=== PATIENT | male | born 1945 | race Two or more races ===

== ENCOUNTER → 2016-10-09 | Outpatient (CLI) | payer OTHER, BC | LOC: BHCLAF 11:00 | PROVIDERS: ATTEND Internal Medicine Cardiovascular Disease | DX: M79.609 Pain in unspecified limb (principal); Z95.2 Presence of prosthetic heart valve; E78.00 Pure hypercholesterolemia, unspecified; I10 Essential (primary) hypertension; E11.9 Type 2 diabetes mellitus without complications; I35.9 Nonrheumatic aortic valve disorder, unspecified; I73.9 Peripheral vascular disease, unspecified | CPT/HCPCS: 93005-PO ==

== ENCOUNTER → 2016-11-01 | Outpatient (CLI) | payer OTHER, BC | LOC: BHFA 15:00 | PROVIDERS: ATTEND Internal Medicine Cardiovascular Disease | DX: M79.662 Pain in left lower leg (principal); M79.661 Pain in right lower leg; I10 Essential (primary) hypertension; E11.9 Type 2 diabetes mellitus without complications ==

== ENCOUNTER → 2016-11-08 | Outpatient (CLI) | payer OTHER, BC | LOC: BHCLAF 10:00 | PROVIDERS: ATTEND Internal Medicine | DX: I35.9 Nonrheumatic aortic valve disorder, unspecified (principal) | CPT/HCPCS: 93306-PO ==

== ENCOUNTER → 2016-12-05 | Outpatient (CLI) | payer OTHER, BC ==
[~2016-12-05] MED LIST: IOPAMIDOL (ISOVUE 370) 100 ML BTL IV ONE
== END ==
LOC: CIMAGING 10:08
PROVIDERS: ATTEND Internal Medicine Cardiovascular Disease
DX: I77.1 Stricture of artery (principal)
CPT/HCPCS: 75635; Q9967

== ENCOUNTER 2017-01-16 07:54 | Inpatient (IN) | payer OTHER, BC ==
[2017-01-16] MEDS ORDERED: ASPIRIN EC 325 MG TAB PO ONE (08:07)
[2017-01-16] MEDS ORDERED: DIAZEPAM 5 MG TAB PO ONE (08:07)
[2017-01-16] MEDS ORDERED: FAMOTIDINE 20 MG/NACL 50 ML IV ONE (08:07)
[2017-01-16] MEDS ORDERED: NS 1,000 ML IV ONE (08:07)
[2017-01-16] MEDS ORDERED: methylPREDNISolone SOD SUCC 125 MG/2 ML VIAL IVP ONE (08:07)
--- NOTE | 2017-01-16 08:22 | CPEKG ---
Heart Rate: 56 RR Interval: 1071 P-R Interval: 184 QRSD Interval: 94 QT Interval: 412 QTC Interval: 398 P [place]: -21 QRS [place]: 11 T Wave [place]: 48 EKG Severity - ABNORMAL ECG - EKG Impression: SINUS RHYTHM EKG Impression: CONSIDER ANTEROSEPTAL INFARCT Electronically Signed By: Devin Naik 16-Jan-2017 09:07:18
[2017-01-16] MEDS ORDERED: MIDAZOLAM 2 MG/2 ML VIAL ONE (08:28)
[2017-01-16] MEDS ORDERED: fentaNYL 100 MCG/2 ML INJ ONE (08:28)
[2017-01-16] MEDS ORDERED: IOPAMIDOL (ISOVUE-370) 150 ML BTL IV ONE (08:28)
[2017-01-16] MEDS ORDERED: LIDOCAINE 1% 300 MG/30 ML SDV ONE (08:28)
[2017-01-16] MEDS ORDERED: HEPARIN 10,000 UNIT/10 ML MDV ONE (08:29)
--- NOTE | 2017-01-16 08:33 | PDPROPOC ---
Sedation Plan of Care Sedation Plan of Care: vital signs stable, mental status noted, patient educated of risks, benefits, alternatives, patient can tolerate sedation ASA Classification: ASA 2 Planned drugs: fentanyl, midazolam Mallampati Score: Class 2 Mallampati Reference Image: Patient passed 3-3-2 rule?: Yes
--- NOTE | 2017-01-16 08:33 | PDHPUP ---
History & Physical Update H&P update statement: This history and physical update is based on an assessment of the patient which was completed after admission or registration (within 24 hours), but prior to the surgery/procedure. H&P update: H&P reviewed & patient examined, no change in patient's condition since H&P completed
[2017-01-16 09:01] LABS: ANION GAP 15 mEq/L (8-16); CALCIUM 9.8 mg/dL (8.5-10.4); CARBON DIOXIDE 20 mEq/l (22-31); CHLORIDE 105 mEq/L (97-110); CHOLESTEROL 182 mg/dL (140-220); CHOLESTEROL/HDL RATIO 5.69 RATIO (1.00-4.97); CREATININE 1.1 mg/dL (0.7-1.3); GLOMERULAR FILTRATION RATE > 60; GLUCOSE 182 mg/dL (70-100); HIGH DENSITY LIPOPROTEIN 32 mg/dL (40-65); LDL/HDL RATIO 3.44 RATIO (1.00-3.64); LOW DENSITY LIPOPROTEIN 110 mg/dL (80-100); MAGNESIUM 1.5 mg/dL (1.6-2.3); NON-HIGH DENSITY LIPOPROTEIN 150 mg/dL (90-129); POTASSIUM 5.5 mEq/L (3.5-5.2); SODIUM 140 mEq/L (134-144); SPECIMEN HEMOLYSIS 115; TRIGLYCERIDE 200 mg/dL (40-150); VERY LOW DENSITY LIPOPROTEINS 40 mg/dL (8-25)
[2017-01-16 09:02] LABS: % IMMATURE GRANULYOCYTES 0.5 % (0.0-1.1); ABSOLUTE IMMATURE GRANULOCYTES 0.04 10^3/uL (0.00-0.10); ADD DIFF? NO; ADD MORPH? NO; ADD SCAN? YES; ATYPICAL LYMPHOCYTE FLAG 0 (0-99); FRAGMENT RBC FLAG 0 (0-99); HEMATOCRIT 41.2 % (40.0-51.0); HEMOGLOBIN 13.4 g/dL (13.7-17.5); LEFT SHIFT FLG 0 (0-99); LIPEMIA HEMOLYSIS FLAG 80 (0-99); MEAN CELL HEMOGLOBIN 28.6 pg (27.9-34.1); MEAN CELL HEMOGLOBIN CONCENTR. 32.5 g/dL (32.4-36.7); MEAN PLATELET VOLUME 10.6 fL (8.7-11.7); PLATELET COUNT 215 10^3/uL (150-400); RED BLOOD CELL COUNT 4.68 10^6/uL (4.40-6.38); RED CELL DISTRIBUTION WIDTH 13.5 % (11.5-15.2)
[2017-01-16 09:03] LABS: PLATELET CLUMPS FLAG 300 (0-99)
[2017-01-16 09:07] LABS: INR 1.04 (0.83-1.16); PROTIME(PATIENT) 13.5 SEC (12.0-15.0)
[2017-01-16 09:22] LABS: SCAN NEGATIVE
[2017-01-16] MEDS ORDERED: IOPAMIDOL (ISOVUE-300) 150 ML BTL ONE ×2 (09:41→10:09)
[2017-01-16] MEDS ORDERED: LABETALOL HCL 5 MG/ML 20 ML MDV ONE (09:42)
[2017-01-16] MEDS ORDERED: CLOPIDOGREL BISULFATE 75 MG TAB ONE (11:31)
[2017-01-16] MEDS ORDERED: ATROPINE SULFATE 1 MG/10 ML SYR IVP PRN (12:21)
[2017-01-16] MEDS ORDERED: TEMAZEPAM 15 MG CAP PO PRN (12:21)
[2017-01-16] MEDS ORDERED: NITROGLYCERIN 0.4 MG BTL SL PRN (12:21)
[2017-01-16] MEDS ORDERED: LORazepam 2 MG/ML INJ IVP PRN (12:21)
[2017-01-16] MEDS ORDERED: ONDANSETRON 4 MG/2 ML VIAL IVP PRN (12:21)
[2017-01-16] MEDS ORDERED: CLINDAMYCIN 150 MG CAP PO PRN (12:25)
--- NOTE | 2017-01-16 12:43 | CPEKG ---
Heart Rate: 54 RR Interval: 1111 P-R Interval: 164 QRSD Interval: 86 QT Interval: 420 QTC Interval: 398 P [place]way: -18 QRS [place]: 15 T Wave [place]: 44 EKG Severity - ABNORMAL ECG - EKG Impression: SINUS RHYTHM EKG Impression: PROBABLE LEFT ATRIAL ABNORMALITY EKG Impression: CONSIDER ANTEROSEPTAL INFARCT Electronically Signed By: Devin Naik 16-Jan-2017 13:15:41
[2017-01-16] MEDS ORDERED: LISINOPRIL 20 MG TAB PO ONE ×2 (12:45→13:00)
[2017-01-16] MEDS ORDERED: HYDROCHLOROTHIAZIDE 25 MG TAB PO ONE (12:45)
--- NOTE | 2017-01-16 12:57 | CPIP ---
[f rep st] INVASIVE CARDIAC PROCEDURE DATE OF PROCEDURE: 01/16/2017 PROCEDURES PERFORMED: 1. Abdominal aortography. 2. Right lower extremity angiography via contralateral approach with catheter placed in the right ex ternal iliac artery. 3. Left lower extremity angiography via ipsilateral approach with catheter placed in the left common iliac artery. 4. Angioplasty of right common iliac artery. 5. Stenting of right common iliac artery with an 8.0 x 37 Express stent. INDICATION: Lifestyle limiting claudication. ACCESS: Patient was prepped and draped in sterile fashion. 1% lidocaine was used to anesthetize the left inguinal region. A 6-German introducer sheath was placed selectively into the left common femo ral artery via modified Seldinger technique. ABDOMINAL AORTOGRAPHY: A 6-German pigtail catheter was advanced in the distal abdominal aorta and po sition verified by angiography. Images were obtained via power injection through the [place] system. The abdominal aorta gave rise to a single left renal artery as well as a single right renal artery. It then continued distally and bifurcated into the left and right common iliac arteries. The left r enal artery was not well visualized. The right renal artery appeared free of any significant disease . Below the renal artery, the abdominal aorta was diffusely diseased with no significant stenosis. RIGHT LOWER EXTREMITY ANGIOGRAPHY: Via contralateral approach with catheter placed in the right exte rnal iliac artery. A 5-German Contra 2 catheter was advanced into the distal abdominal aorta and ref ormed into its usual position. The catheter was then used to selectively engage the right common francine ac artery. Images were obtained via hand injection. The right common iliac artery bifurcated into i nternal and external iliac arteries. The right common iliac artery was diffusely diseased. In the p roximal segment, there was a discrete 90% stenosis present. In the eec-ec-nfxqaz segment, there was a discrete 40% to 50% stenosis present. The right internal iliac artery had a 90% ostial stenosis pr esent with antegrade flow. The right external iliac artery was free of any significant disease. A s tiff angled Glidewire was then advanced through the Contra 2 catheter, and the Contra 2 catheter was exchanged for a straight flush catheter. The straight flush catheter was placed selectively into the right external iliac artery and images obtained. The right external iliac artery turned into the [facility] artery. The right common femoral artery then bifurcated into the superficial femo ral artery and profunda femoral artery. The right external iliac artery was free of any significant disease. The right common femoral artery was also free of any significant disease. The ostial porti on of the profunda femoral artery had a discrete 80% stenosis present. The right superficial femoral artery was diffusely diseased with multiple segments of 70% to 80% stenoses present. The right supe rficial femoral artery then turned into the popliteal artery. The popliteal artery was free of any s ignificant disease. Below the knee, there was a 2-vessel runoff with an occluded posterior tibial ar dana. LEFT LOWER EXTREMITY ANGIOGRAPHY: Via ipsilateral approach with catheter placed in the left common i liac artery. A straight flush catheter was placed in the left common iliac artery, and images were o btained via hand injection through the catheter. The left common iliac artery bifurcated into a left external iliac artery and left internal iliac artery. The left common iliac artery had an ostial 70 % stenosis present. The left internal iliac artery had an ostial 90% stenosis present. The left ext ernal iliac artery was diffusely diseased, approaching 70% in severity. The left external iliac elier ry then turned into the left common femoral artery. The left common femoral artery is free of any si gnificant disease. The left common femoral artery bifurcated into the superficial femoral artery and profunda femoral artery. The right superficial femoral artery was occluded in the mid segment; it r econstituted around Riley canal and then turned into the popliteal artery. The popliteal artery was free of any significant disease. Below the knee, there was 2-vessel runoff with an occluded posteri or tibial artery. PERCUTANEOUS INTERVENTION OF THE RIGHT COMMON ILIAC ARTERY: A 6-German introducer sheath was placed selectively into the right common femoral artery via modified Seldinger technique. A Magic torque wi re was placed in the distal abdominal aorta with position verified by angiography. A 6.0 x 40 Charge r balloon was then used to dilate the lesion. Followup angiography demonstrated significant residual stenosis. An 8.0 x 37 Express stent was then placed across the lesion and deployed. Followup angio graphy demonstrated incomplete stent expansion in the proximal portion of the vessel with good runoff . A 6.0 x 40 Office Secretary balloon was then used to post dilate the stent. Followup angiography demonstra robert no residual stenosis. COMPLICATIONS: None. CONCLUSIONS: 1. Status post stenting of right common iliac artery. 2. Consider staged intervention of the right superficial femoral artery via the left common femoral artery approach. 3. Consider staged intervention of the left superficial femoral artery, left common iliac artery, an d left external iliac artery via the right common femoral artery approach. /[id number]/MODL
[2017-01-16] MEDS ORDERED: LISINOPRIL/HCTZ 10/12.5 MG 1 EA TAB PO ONE (13:15)
[2017-01-16] MEDS: LABETALOL HCL 50 MG/10 ML SYR IVP PRN ×2 (14:43→15:03)
[2017-01-16] MEDS: HYDROCHLOROTHIAZIDE 25 MG TAB PO SCH (16:18)
[2017-01-16] MEDS: LISINOPRIL 20 MG TAB PO SCH (16:18)
[2017-01-16] MEDS: CARVEDILOL 6.25 MG TAB PO SCH (18:05)
[2017-01-16] MEDS: MONTELUKAST SODIUM 10 MG TAB PO SCH (18:05)
[2017-01-16] MEDS: OMEGA-3 FATTY ACIDS 1,000 MG CAP PO SCH (20:39)
[2017-01-16] MEDS: GLIMEPIRIDE 2 MG TAB PO SCH (20:40)
[2017-01-17 04:47] LABS: % IMMATURE GRANULYOCYTES 0.7 % (0.0-1.1); ABSOLUTE IMMATURE GRANULOCYTES 0.06 10^3/uL (0.00-0.10); ADD DIFF? NO; ADD MORPH? NO; ADD SCAN? NO; ATYPICAL LYMPHOCYTE FLAG 0 (0-99); FRAGMENT RBC FLAG 0 (0-99); LEFT SHIFT FLG 0 (0-99); LIPEMIA HEMOLYSIS FLAG 80 (0-99); MEAN CELL HEMOGLOBIN 28.7 pg (27.9-34.1); MEAN CELL HEMOGLOBIN CONCENTR. 32.4 g/dL (32.4-36.7); MEAN CELL VOLUME 88.5 fL (81.5-99.8); PLATELET CLUMPS FLAG 0 (0-99); PLATELET COUNT 191 10^3/uL (150-400); RED BLOOD CELL COUNT 4.18 10^6/uL (4.40-6.38); RED CELL DISTRIBUTION WIDTH 13.6 % (11.5-15.2)
[2017-01-17 05:04] LABS: ANION GAP 12 mEq/L (8-16); CALCIUM 9.2 mg/dL (8.5-10.4); CARBON DIOXIDE 24 mEq/l (22-31); CHLORIDE 103 mEq/L (97-110); CREATININE 1.5 mg/dL (0.7-1.3); GLOMERULAR FILTRATION RATE 46; GLUCOSE 132 mg/dL (70-100); POTASSIUM 4.3 mEq/L (3.5-5.2); SODIUM 139 mEq/L (134-144)
[2017-01-17] MEDS ORDERED: NON-FORMULARY NEW DRUG (Lisinopril/Hydrochlorothiazide [Prinzide 20-25 Mg Tablet] 1 EACH) PO SCH (09:00)
[2017-01-17] MEDS ORDERED: ATORVASTATIN CALCIUM 40 MG TAB PO SCH ×2 (09:00→11:20)
[2017-01-17] MEDS: HYDROCHLOROTHIAZIDE 25 MG TAB PO SCH (09:06)
[2017-01-17] MEDS: MULTIVITAMINS 1 EACH TAB PO SCH (09:08)
[2017-01-17] MEDS: CHOLECALCIFEROL VIT D3 2,000 UNITS TAB/CAP PO SCH (09:08)
[2017-01-17] MEDS: CLOPIDOGREL BISULFATE 75 MG TAB PO SCH (09:08)
[2017-01-17] MEDS: CARVEDILOL 6.25 MG TAB PO SCH ×2 (09:09→21:48)
[2017-01-17] MEDS: ASPIRIN EC 325 MG TAB PO SCH (09:09)
[2017-01-17] MEDS: LISINOPRIL 20 MG TAB PO SCH (09:09)
[2017-01-17] MEDS ORDERED: FLU VACC QS 2017-18 (3YR+)/PF 0.5 ML SYR (FLUARIX QUAD) IM ONE (09:12)
--- NOTE | 2017-01-17 11:27 | ASMTCMCOM ---
CM Note CM Note Notes: Chart reviewed, pt is a 71 man admitted w/ PVD and claudication. CM anticipating that pt discharges independent w/out any needs when medically stable. CM available for changes. Date Signed: 01/17/2017 11:27 AM Electronically Signed By:ENMANUEL Mckinnon
[2017-01-17] MEDS: NS 1,000 ML IV SCH ×2 (11:37→22:03)
--- NOTE | 2017-01-17 18:48 | SOAPPROG ---
[facility] Progress Note Assessment/Plan: 1. PVD - Pt presented with life style limiting claudication ABIs demonstrated severe B lower extremity occlusive disease. Angiogram with high grade B CI artery stenosis as well as high grade B SFA stenosis. Pt was treated with stenting of his RCI artery with plans for staged R SFA as well as L SFA, and L CI artery intervention in the future. --> Continue asa, plavix, and lipitor 2. HTN - Pt has a long history of HTN. He reports a recent increase in his BP. --> Start norvasc 5 mg daily 3. Hyperlipidemia - LDL = 110 on lipitor 40 mg daily. Lipitor increased to 80 mg daily. FLP and LFTs in 3 months. Consider zetia and repatha 4. KINZA - Pt presents with acute renal insufficiency post intervention. Cr increased from 1.1 to 1.5. Contrast approximately 270 ml. Will observe overnight. --> Hydrate and check chem 7 in am. 5. - Pt is s/p AVR in 2008 and 2011. Echocardiogram in 11/18 with normally functioning prosthesis. 01/17/17 18:53 Subjective: No chest pain No orthopnea or PND ambulating around pod Objective: Vital Signs Temp Pulse Resp BP Pulse Ox 36.4 C 62 15 179/78 H 93 01/17/17 17:29 01/17/17 17:29 01/17/17 17:29 01/17/17 17:29 01/17/17 17:29 Laboratory Results 01/17/17 04:03 01/17/17 04:03 01/16/17 01/17/17 01/18/17 05:59 05:59 05:59 Intake Total 400 500 Output Total 400 850 Balance 0 -350 PT 13.5 SEC (12.0-15.0) 01/16/17 08:25 INR 1.04 (0.83-1.16) 01/16/17 08:25 Physical Exam - Physical Exam General Appearance: alert, no apparent distress Respiratory: lungs clear Cardiac/Chest: regular rate, rhythm Abdomen: non-tender, distended Extremities: other (No hematoma or echymosis B. pulse doppler), No pedal edema Neuro/Psych: alert ICD10 Worksheet Patient Problems: Problems Problem Status Onset Claudication in peripheral vascular disease Acute Claudication of both lower extremities Acute - ICD10 Problem Qualifiers (1) Claudication in peripheral vascular disease (2) Claudication of both lower extremities
[2017-01-17] MEDS: MONTELUKAST SODIUM 10 MG TAB PO SCH (21:48)
[2017-01-17] MEDS: GLIMEPIRIDE 2 MG TAB PO SCH (21:48)
[2017-01-17] MEDS: OMEGA-3 FATTY ACIDS 1,000 MG CAP PO SCH (21:48)
[2017-01-18 07:11] VITALS: BP 135/61; RESP 16; TEMP 98.4; O2SAT 91
[2017-01-18 08:15] LABS: ANION GAP 12 mEq/L (8-16); CALCIUM 8.8 mg/dL (8.5-10.4); CARBON DIOXIDE 23 mEq/l (22-31); CHLORIDE 104 mEq/L (97-110); CREATININE 1.2 mg/dL (0.7-1.3); GLOMERULAR FILTRATION RATE 60; GLUCOSE 170 mg/dL (70-100); POTASSIUM 4.9 mEq/L (3.5-5.2); SODIUM 139 mEq/L (134-144)
[2017-01-18] MEDS: LISINOPRIL 20 MG TAB PO SCH (08:50)
[2017-01-18] MEDS: CARVEDILOL 6.25 MG TAB PO SCH (08:51)
[2017-01-18] MEDS: CHOLECALCIFEROL VIT D3 2,000 UNITS TAB/CAP PO SCH (08:55)
[2017-01-18] MEDS: ASPIRIN EC 325 MG TAB PO SCH (08:55)
[2017-01-18] MEDS: MULTIVITAMINS 1 EACH TAB PO SCH (08:55)
[2017-01-18] MEDS: CLOPIDOGREL BISULFATE 75 MG TAB PO SCH (08:55)
[2017-01-18 08:56] VITALS: PULSE 72
[2017-01-18] MEDS ORDERED: amLODIPine BESYLATE 5 MG TAB PO SCH (09:00)
--- NOTE | 2017-01-18 11:37 | ASMTCMCOM ---
CM Note CM Note Notes: Pt. d/cing independently to his today. Date Signed: 01/18/2017 11:37 AM Electronically Signed By:Marian Vale LCSW
--- NOTE | 2017-01-18 17:05 | ASDISCHSUM ---
Discharge Information Plan Status:Home with No Needs Medically Cleared to Leave: Discharge Date:01/18/2017 12:22 PM CM D/C Disposition:Home, Routine, Self-Care ADT D/C Disposition:Home, Routine, Self-Care Projected Discharge Date:01/18/2017 12:00 AM Transportation at D/C: Discharge Delay Reason: Follow-Up Date:01/18/2017 12:00 AM Discharge Slot: Final Diagnosis: Placement Information Patient Contact Information Contact Name:KEYSHA Relationship: Address:[address] Home Phone: City:[place] Alternate Phone: [facility]/Zip Code:[place] [address] Email: Financial Information Financial Class: Primary Plan Desc:MEDICARE OUTPATIENT Primary Plan Number:[id number] Secondary Plan Desc[facility] Secondary Plan Number:[id number] Assessment Information [facility] CM Progress Note CM Note CM Note Notes: Chart reviewed, pt is a 71 man admitted w/ PVD and claudication. CM anticipating that pt discharges independent w/out any needs when medically stable. CM available for changes. Date Signed: 01/17/2017 11:27 AM Electronically Signed By:ENMANUEL Mckinnon [facility] CM Progress Note CM Note CM Note Notes: Pt. d/north independently to his today. Date Signed: 01/18/2017 11:37 AM Electronically Signed By:Marian Vale LCSW Intervention Information Intervention Type:*BARKER-Signed Date of Service:01/17/2017 10:14 AM Patient Type:Observation Staff Member:Anila Llanes Hours: Discipline: Severity: Comment: Intervention Type:*Occurence 72 Date of Service:01/16/2017 12:21 PM Patient Type:Inpatient Staff Member:JAMES Cm, [place] Hours:0.25 Discipline: Severity:1 (0-1 Hours) Comment:Occ 72 for 01/16/2017 as patient discha rged -17 9, 2 MN LOS after patient admission status changed from observation to inpatient).
== END 2017-01-18 12:22 | disposition home or self-care (01) | DRG 254 ==
LOC: FCATH 07:54 → F2W 12:21 → OBSVTOIN 01-17 15:38
PROVIDERS: ADMIT Internal Medicine Cardiovascular Disease; ATTEND Internal Medicine Cardiovascular Disease
PROC: 047C34Z Dilation of Right Common Iliac Artery with Drug-eluting Intraluminal Device, Percutaneous Approach (ICD-10-PCS; principal; 2017-01-16)
DX: I73.9 Peripheral vascular disease, unspecified (principal); E11.9 Type 2 diabetes mellitus without complications; I10 Essential (primary) hypertension; E78.5 Hyperlipidemia, unspecified; I35.9 Nonrheumatic aortic valve disorder, unspecified; E66.9 Obesity, unspecified; Z23 Encounter for immunization
CPT/HCPCS: C1725; C1769; C1876; G0008; J0461; J1200; J1644; J2250; J3010; J3490; Q9967

== ENCOUNTER 2017-02-14 11:16 | Observation (INO) | payer OTHER, BC ==
[2017-02-14] MEDS ORDERED: DIAZEPAM 5 MG TAB PO ONE (11:21)
[2017-02-14] MEDS ORDERED: methylPREDNISolone SOD SUCC 125 MG/2 ML VIAL IVP ONE (11:21)
[2017-02-14] MEDS ORDERED: ASPIRIN EC 325 MG TAB PO ONE ×2 (11:21→11:59)
[2017-02-14] MEDS ORDERED: FAMOTIDINE 20 MG/NACL 50 ML IV ONE (11:21)
[2017-02-14] MEDS ORDERED: NS 1,000 ML IV ONE (11:21)
[2017-02-14] MEDS ORDERED: methylPREDNISolone SOD SUCC 125 MG/2 ML VIAL ONE (11:58)
[2017-02-14] MEDS ORDERED: EPINEPHrine 1 MG/10 ML SYR IVP ONE (11:58)
[2017-02-14] MEDS ORDERED: FAMOTIDINE 20 MG/NACL/50 ML BAG IV ONE (11:58)
[2017-02-14] MEDS ORDERED: DIAZEPAM 5 MG TAB ONE (12:00)
[2017-02-14 12:03] LABS: % IMMATURE GRANULYOCYTES 0.6 % (0.0-1.1); ABSOLUTE IMMATURE GRANULOCYTES 0.05 10^3/uL (0.00-0.10); ADD DIFF? NO; ADD MORPH? NO; ADD SCAN? NO; ATYPICAL LYMPHOCYTE FLAG 10 (0-99); FRAGMENT RBC FLAG 0 (0-99); HEMATOCRIT 38.1 % (40.0-51.0); HEMOGLOBIN 12.8 g/dL (13.7-17.5); LEFT SHIFT FLG 0 (0-99); LIPEMIA HEMOLYSIS FLAG 80 (0-99); MEAN CELL HEMOGLOBIN 29.1 pg (27.9-34.1); MEAN CELL HEMOGLOBIN CONCENTR. 33.6 g/dL (32.4-36.7); MEAN CELL VOLUME 86.6 fL (81.5-99.8); MEAN PLATELET VOLUME 9.4 fL (8.7-11.7); PLATELET CLUMPS FLAG 0 (0-99); PLATELET COUNT 202 10^3/uL (150-400); RED CELL DISTRIBUTION WIDTH 13.2 % (11.5-15.2)
[2017-02-14 12:12] LABS: INR 1.09 (0.83-1.16)
[2017-02-14 12:50] LABS: ANION GAP 14 mEq/L (8-16); CALCIUM 9.6 mg/dL (8.5-10.4); CARBON DIOXIDE 21 mEq/l (22-31); CHLORIDE 100 mEq/L (97-110); CHOLESTEROL 136 mg/dL (140-220); CHOLESTEROL/HDL RATIO 5.91 RATIO (1.00-4.97); CREATININE 1.4 mg/dL (0.7-1.3); GLOMERULAR FILTRATION RATE 50; GLUCOSE 108 mg/dL (70-100); HIGH DENSITY LIPOPROTEIN 23 mg/dL (40-65); LDL/HDL RATIO 3.04 RATIO (1.00-3.64); LOW DENSITY LIPOPROTEIN 70 mg/dL (80-100); MAGNESIUM 1.9 mg/dL (1.6-2.3); NON-HIGH DENSITY LIPOPROTEIN 113 mg/dL (90-129); POTASSIUM 5.1 mEq/L (3.5-5.2); SODIUM 135 mEq/L (134-144); TRIGLYCERIDE 219 mg/dL (40-150); VERY LOW DENSITY LIPOPROTEINS 43 mg/dL (8-25)
--- NOTE | 2017-02-14 12:52 | PDPROPOC ---
Sedation Plan of Care Sedation Plan of Care: vital signs stable, mental status noted, patient educated of risks, benefits, alternatives, patient can tolerate sedation ASA Classification: ASA 2 Planned drugs: fentanyl, midazolam Mallampati Score: Class 3 Mallampati Reference Image: Patient passed 3-3-2 rule?: Yes
[2017-02-14] MEDS ORDERED: LIDOCAINE 1% 300 MG/30 ML SDV ONE (13:03)
[2017-02-14] MEDS ORDERED: fentaNYL 100 MCG/2 ML INJ ONE ×2 (13:03→14:03)
[2017-02-14] MEDS ORDERED: MIDAZOLAM 2 MG/2 ML VIAL ONE ×3 (13:03→14:43)
[2017-02-14] MEDS ORDERED: IOPAMIDOL (ISOVUE-300) 150 ML BTL ONE (13:04)
[2017-02-14] MEDS ORDERED: VERAPAMIL 5 MG/2 ML VIAL ONE (13:10)
[2017-02-14] MEDS ORDERED: NITROGLYCERIN/D5W 50 MG/250 ML BOTTLE IV ONE (13:10)
[2017-02-14] MEDS ORDERED: HEPARIN 10,000 UNIT/10 ML MDV ONE (13:10)
[2017-02-14] MEDS ORDERED: ATROPINE SULFATE 1 MG/10 ML SYR ONE (15:47)
[2017-02-14] MEDS ORDERED: TEMAZEPAM 15 MG CAP PO PRN (16:00)
[2017-02-14] MEDS ORDERED: ONDANSETRON 4 MG/2 ML VIAL IVP PRN (16:00)
[2017-02-14] MEDS ORDERED: NITROGLYCERIN 0.4 MG BTL SL PRN (16:00)
[2017-02-14] MEDS ORDERED: LORazepam 2 MG/ML INJ IVP PRN (16:00)
[2017-02-14] MEDS ORDERED: ATROPINE SULFATE 1 MG/10 ML SYR IVP PRN (16:00)
[2017-02-14] MEDS ORDERED: NS 1,000 ML IV SCH (16:00)
[2017-02-14] MEDS ORDERED: CLINDAMYCIN 150 MG CAP PO PRN (16:02)
--- NOTE | 2017-02-14 17:23 | CPIP ---
[f rep st] INVASIVE CARDIAC PROCEDURE DATE OF PROCEDURE: 02/14/2017 NAME OF PROCEDURE: 1. Right lower extremity angiography via contralateral approach with catheter placed in the right ex ternal iliac artery. 2. Jet stream of right distal superficial femoral artery. 3. Drug coated balloon angioplasty of right distal superficial femoral artery. INDICATION: Lifestyle-limiting claudication. ACCESS: Patient was prepped and draped in a sterile fashion. 1% lidocaine was used to anesthetize t he left inguinal region. A 6-Paraguayan introducer sheath was placed selectively into the left common fe moral artery via modified Seldinger technique. The 6-Paraguayan introducer sheath was later exchanged fo r a 7-Paraguayan introducer sheath via exchange wire technique. Right lower extremity angiography via co ntralateral approach with catheter placed in the right external iliac artery. A 5-Paraguayan Contra-2 ca theter was advanced into the distal abdominal aorta and reformed into its usual position. The 5-Fren ch Contra-2 catheter was then used to selectively engage the right external iliac artery. Images wer e obtained via hand injection through the catheter. The right common iliac artery bifurcated into th e right internal and right external iliac arteries the right common iliac artery had a previously ole mariza stent within. The previously placed stent was widely patent with no evidence of in-stent resteno sis. The right internal iliac artery had an ostial 70% stenosis present. The right external iliac a rtery had mild luminal irregularities throughout, but there was no stenosis greater than 20%. The ri ght external iliac artery turned into the right common femoral artery. The right common femoral elier ry bifurcated into the right superficial femoral artery and profunda femoral arteries. The right com mon femoral artery was free of any significant disease. The right profunda femoral artery had an ost ial 50% stenosis present. The right superficial femoral artery was diffusely diseased. In the mid-t o-distal segment, there was a sequential 70% to 80% stenosis present which were heavily calcified. T he right superficial femoral artery then turned into the popliteal artery. The popliteal artery is f ree of any significant disease. Below the knee, there was 2-vessel runoff. Intervention of the right superficial femoral artery: A 7-Par[place]ayan [place] [employer] sheath was ole mariza in the right external iliac artery and position verified by angiography. Several attempts were m francis at trying to pass a filter wire into the distal vessel; these were unsuccessful. A Thruway wire was then used to perform the intervention. The Thruway wire was placed in the popliteal artery. A j et stream catheter was then passed with blades down on 2 separate occasions. The jet stream catheter was then used with blades up. Followup angiography demonstrated significant residual stenosis. A L utonix 5.0 x 120 balloon was used to dilate the distal lesion, and a Lutonix 5.0 x 60 balloon was use d to dilate the mid lesion. Followup angiography demonstrated no significant residual stenosis. The re was a bjf-wwlv-tradaoat dissection in the distal superficial femoral artery. COMPLICATIONS: None. CONCLUSIONS: 1. Severe distal right superficial femoral artery disease. 2. Status post atherectomy and drug-coated balloon angioplasty of the distal right superficial femor al artery. /[id number]/MODL
[2017-02-14] MEDS: CARVEDILOL 6.25 MG TAB PO SCH (18:32)
[2017-02-14] MEDS: amLODIPine BESYLATE 5 MG TAB PO SCH ×3 (18:44→19:54)
[2017-02-14] MEDS: OMEGA-3 FATTY ACIDS 1,000 MG CAP PO SCH (20:50)
[2017-02-14] MEDS ORDERED: GLIMEPIRIDE 2 MG TAB PO SCH (21:00)
[2017-02-14] MEDS ORDERED: MONTELUKAST SODIUM 10 MG TAB PO SCH (21:00)
[2017-02-14] MEDS ORDERED: ATORVASTATIN CALCIUM 40 MG TAB PO SCH (21:00)
[2017-02-15 04:28] LABS: % IMMATURE GRANULYOCYTES 0.4 % (0.0-1.1); ABSOLUTE IMMATURE GRANULOCYTES 0.05 10^3/uL (0.00-0.10); ADD DIFF? NO; ADD MORPH? NO; ADD SCAN? NO; ATYPICAL LYMPHOCYTE FLAG 0 (0-99); FRAGMENT RBC FLAG 0 (0-99); HEMATOCRIT 34.7 % (40.0-51.0); HEMOGLOBIN 11.7 g/dL (13.7-17.5); LEFT SHIFT FLG 0 (0-99); LIPEMIA HEMOLYSIS FLAG 80 (0-99); MEAN CELL HEMOGLOBIN CONCENTR. 33.7 g/dL (32.4-36.7); MEAN CELL VOLUME 86.1 fL (81.5-99.8); MEAN PLATELET VOLUME 9.7 fL (8.7-11.7); PLATELET CLUMPS FLAG 10 (0-99); PLATELET COUNT 197 10^3/uL (150-400); RED BLOOD CELL COUNT 4.03 10^6/uL (4.40-6.38); RED CELL DISTRIBUTION WIDTH 13.2 % (11.5-15.2)
[2017-02-15 04:43] LABS: ANION GAP 12 mEq/L (8-16); CALCIUM 8.4 mg/dL (8.5-10.4); CARBON DIOXIDE 18 mEq/l (22-31); CHLORIDE 105 mEq/L (97-110); CREATININE 1.4 mg/dL (0.7-1.3); GLOMERULAR FILTRATION RATE 50; GLUCOSE 319 mg/dL (70-100); POTASSIUM 5.5 mEq/L (3.5-5.2); SODIUM 135 mEq/L (134-144)
[2017-02-15 08:18] VITALS: BP 180/67; PULSE 86; RESP 22; TEMP 97.5; O2SAT 96
[2017-02-15] MEDS: OMEGA-3 FATTY ACIDS 1,000 MG CAP PO SCH (08:20)
[2017-02-15] MEDS: CARVEDILOL 6.25 MG TAB PO SCH (08:21)
[2017-02-15] MEDS ORDERED: HYDROCHLOROTHIAZIDE 25 MG TAB PO SCH (09:00)
[2017-02-15] MEDS ORDERED: MULTIVITAMINS 1 EACH TAB PO SCH (09:00)
[2017-02-15] MEDS ORDERED: CLOPIDOGREL BISULFATE 75 MG TAB PO SCH (09:00)
[2017-02-15] MEDS ORDERED: LISINOPRIL 20 MG TAB PO SCH ×2 (09:00)
[2017-02-15] MEDS ORDERED: CHOLECALCIFEROL VIT D3 2,000 UNITS TAB/CAP PO SCH (09:00)
[2017-02-15] MEDS ORDERED: ASPIRIN EC 325 MG TAB PO SCH (09:00)
[2017-02-15] MEDS ORDERED: CARVEDILOL 6.25 MG TAB PO SCH (09:08)
--- NOTE | 2017-02-15 10:40 | GDS ---
[f rep st] DISCHARGE SUMMARY DISCHARGE DIAGNOSES: 1. Peripheral vascular disease, status post percutaneous coronary intervention to right superficial femoral artery in this admission. 2. Obesity. 3. Type 2 diabetes mellitus. 4. Former tobacco abuse. 5. Aortic valve disease, status post AVR with redo in 2011. 6. Dyslipidemia. PROCEDURES: On 03/17/2017, severe distal right SFA disease, status post atherectomy and drug-coated balloon angioplasty. BRIEF HISTORY: Please see dictated H and P by Dr. Moya for complete detail. In brief, the patient is a 71-year-old male with a past medical history of aortic valve disease, peripheral vascular disea se, type 2 diabetes mellitus, hypertension, dyslipidemia, and obesity, who had been noting worsening claudications. He has a history of right carotid endarterectomy in 2014 and left carotid endarterect ricardo in 2004. In January 2017, he had a right common iliac artery stenting. He had known bilateral lower extremity lifestyle-limiting claudications and had known occlusions in his right and left SFA and common iliac artery. He proceeded to right SFA atherectomy and balloon angioplasty on 02/14/2017 . On day of discharge, patient reports right leg feels really quite notably better. He denies any pain at groin site. PHYSICAL EXAMINATION: VITAL SIGNS: On day of discharge, blood pressure 180/67, heart rate of 86, O2 saturation 96% on room air, temp of 97.5, respirations 22. GENERAL: A pleasant male in no apparent distress. EYES: PERRL. HEART: Regular rate and rhythm. LUNGS: Clear. ABDOMEN: Obese, nontend er, with normoactive bowel sounds. Left groin site with no ecchymosis present. EXTREMITIES: He has a trace left PT pulse and a trace to 1+ right PT pulse. There is a DP pulse palpable on the right a s well. LABORATORY DATA: CBC on day of discharge: WBC 11.12, hemoglobin 11.7, hematocrit 34.7, platelet cou nt of 187. BMP with sodium 135, potassium 5.5, chloride 105, CO2 18, BUN of 43, creatinine 1.4, gluc ose 319. Triglycerides 219, total cholesterol 136, LDL of 70, and HDL of 23. RESULTS PENDING: None. DIET: Cardiac. ACTIVITY: We reviewed groin precautions. DISCHARGE MEDICATIONS: Please see med reconciliation for complete details. Because his blood pressu res have been high, we will increase his carvedilol to 12.5 p.o. b.i.d. He is to hold metformin for 48 hours after procedure. Otherwise, he will be continued on his home medications, which include aml odipine, Januvia, lisinopril with hydrochlorothiazide, Glimepiride, clopidogrel, aspirin, fluticasone , cholecalciferol, atorvastatin, omega-3 fatty acids, multivitamin, and Singulair. FOLLOWUP INSTRUCTIONS: 1. Follow up with Dr. Moya in 1 week. 2. Follow up labs in 1 week's time. /[id number]/MODL
--- NOTE | 2017-02-16 12:34 | ASDISCHSUM ---
Discharge Information Plan Status:Home with No Needs Medically Cleared to Leave:02/15/2017 Discharge Date:02/15/2017 10:08 AM CM D/C Disposition: ADT D/C Disposition:Home, Routine, Self-Care Projected Discharge Date:02/15/2017 12:00 AM Transportation at D/C: Discharge Delay Reason: Follow-Up Date:02/15/2017 12:00 AM Discharge Slot: Final Diagnosis: Placement Information Patient Contact Information Contact Name:KEYSHA Relationship: Address:[address] Home Phone: City:[place] Alternate Phone: [facility]/Zip Code:[place] [address] Email: Financial Information Financial Class:MC Primary Plan Desc:MEDICARE OUTPATIENT Primary Plan Number:[id number] Secondary Plan Desc:BC OUT OF STATE INDEMNITY Secondary Plan Number:[id number] Assessment Information Intervention Information
== END 2017-02-15 10:08 | disposition home or self-care (01) ==
LOC: FCATH 11:16 → F2W 15:55
PROVIDERS: ADMIT Internal Medicine Cardiovascular Disease; ATTEND Internal Medicine Cardiovascular Disease
PROC: 047K3Z1 Dilation of Right Femoral Artery using Drug-Coated Balloon, Percutaneous Approach (ICD-10-PCS; principal; 2017-02-14)
PROC: 04HH33Z Insertion of Infusion Device into Right External Iliac Artery, Percutaneous Approach (ICD-10-PCS; principal; 2017-02-14)
PROC: 04CK3ZZ Extirpation of Matter from Right Femoral Artery, Percutaneous Approach (ICD-10-PCS; principal; 2017-02-14)
DX: I70.211 Atherosclerosis of native arteries of extremities with intermittent claudication, right leg (principal); I73.9 Peripheral vascular disease, unspecified; E66.9 Obesity, unspecified; E11.9 Type 2 diabetes mellitus without complications; I35.9 Nonrheumatic aortic valve disorder, unspecified; E78.5 Hyperlipidemia, unspecified; I10 Essential (primary) hypertension; Z86.73 Personal history of transient ischemic attack (TIA), and cerebral infarction without residual deficits; Z87.891 Personal history of nicotine dependence; Z82.49 Family history of ischemic heart disease and other diseases of the circulatory system; Z82.3 Family history of stroke; Z95.2 Presence of prosthetic heart valve; Z88.0 Allergy status to penicillin
CPT/HCPCS: 37225; 75710; C1724; C1769; C1884; C1887; C2623; J1200; J1644; J2250; J3010; Q9967; J0461

== ENCOUNTER 2017-03-06 07:09 | Observation (INO) | payer OTHER, BC ==
[2017-03-06] MEDS ORDERED: FAMOTIDINE 20 MG/NACL 50 ML IV ONE (07:11)
[2017-03-06] MEDS ORDERED: DIAZEPAM 5 MG TAB PO ONE (07:11)
[2017-03-06] MEDS ORDERED: methylPREDNISolone SOD SUCC 125 MG/2 ML VIAL IVP ONE (07:11)
[2017-03-06] MEDS ORDERED: ASPIRIN EC 325 MG TAB PO ONE (07:11)
[2017-03-06] MEDS ORDERED: NS 1,000 ML IV ONE (07:11)
--- NOTE | 2017-03-06 07:30 | CPEKG ---
Heart Rate: 59 RR Interval: 1017 P-R Interval: 204 QRSD Interval: 84 QT Interval: 392 QTC Interval: 389 P [place]cock: -37 QRS [place]cock: 11 T Wave [place]cock: 75 EKG Severity - BORDERLINE ECG - EKG Impression: SINUS RHYTHM EKG Impression: PROBABLE LEFT ATRIAL ABNORMALITY Electronically Signed By: Sam Sanchez 06-Mar-2017 10:57:29
[2017-03-06 07:51] LABS: PLATELET COUNT 214 10^3/uL (150-400)
[2017-03-06 07:59] LABS: INR 1.03 (0.83-1.16); PROTIME(PATIENT) 13.4 SEC (12.0-15.0)
[2017-03-06] MEDS ORDERED: LIDOCAINE 1% 300 MG/30 ML SDV ONE (08:44)
[2017-03-06] MEDS ORDERED: fentaNYL 100 MCG/2 ML INJ ONE ×2 (08:45→10:16)
[2017-03-06] MEDS ORDERED: MIDAZOLAM 2 MG/2 ML VIAL ONE ×2 (08:45→10:16)
[2017-03-06] MEDS ORDERED: HEPARIN 10,000 UNIT/10 ML MDV ONE ×2 (08:47)
[2017-03-06] MEDS ORDERED: IOPAMIDOL (ISOVUE-300) 150 ML BTL ONE ×2 (08:48→10:47)
[2017-03-06] MEDS ORDERED: LORazepam 2 MG/ML INJ IVP PRN (11:57)
[2017-03-06] MEDS ORDERED: ATROPINE SULFATE 1 MG/10 ML SYR IVP PRN (11:57)
[2017-03-06] MEDS ORDERED: TEMAZEPAM 15 MG CAP PO PRN (11:57)
[2017-03-06] MEDS ORDERED: ONDANSETRON 4 MG/2 ML VIAL IVP PRN (11:57)
[2017-03-06] MEDS ORDERED: CLINDAMYCIN 150 MG CAP PO PRN (12:00)
--- NOTE | 2017-03-06 12:44 | CPIP ---
[f rep st] INVASIVE CARDIAC PROCEDURE DATE OF PROCEDURE: 03/06/2017 PROCEDURES PERFORMED: 1. Abdominal aortography. 2. Right lower extremity angiography with catheter placed in the right common femoral artery. 3. Left lower extremity angiography with catheter placed in the left common femoral artery. 4. Stenting of left common iliac artery with an 8 x 37 biliary Express stent. 5. Stenting of left external iliac artery with a 7 x 80 self-expanding stent. INDICATION: Claudication. ACCESS: Patient was prepped and draped in sterile fashion. 1% lidocaine was used to anesthetize the right inguinal region. A 6-Anguillan introducer sheath was placed selectively into the right common fe moral artery via modified Seldinger technique. A 6-Anguillan introducer sheath was also placed in the l eft common femoral artery via modified Seldinger technique. ABDOMINAL AORTOGRAPHY: A 6-Anguillan pigtail catheter was advanced into the abdominal aorta and positio n verified by angiography. Images were obtained via power injection through the [employer] system. The distal abdominal aorta was diffusely diseased with mild luminal irregularities throughout. In the di stal abdominal aorta prior to the bifurcation of the left and right common iliac arteries, there appe ared to be a 20% to 30% stenosis present. RIGHT LOWER EXTREMITY ANGIOGRAPHY: With catheter placed in the right common femoral artery, images o f the right lower extremity were obtained via hand injection through the 6-Anguillan introducer sheath p laced in the right common femoral artery. The right common iliac artery bifurcated into the right ex ternal iliac and internal iliac arteries. A previously placed stent could be seen in the right commo n iliac artery. The previously placed stent was widely patent with no evidence of significant in-arlette nt restenosis. Just distal to the previously placed stent, a 50% stenosis could be appreciated just prior to the takeoff of the right internal iliac artery. The right external iliac artery had mild di ffuse disease throughout. There was no stenosis greater than 20%. The right external iliac artery t urned into the right common femoral artery. The right common femoral artery was diffusely diseased w ith 20% to 30% stenosis present. The right common femoral artery bifurcated into the superficial fem oral artery and the profunda femoral artery. The profunda femoral artery had an ostial 80% stenosis present. The right superficial femoral artery was diffusely diseased. In the proximal vessel, there were segmental 40% to 50% stenoses present. In the midvessel, non-flow limiting dissection could be seen with no evidence of significant stenosis. In the distal section of the vessel, 20% to 30% sten osis could be seen. The popliteal artery was free of any significant disease. Below the knee, there was 2-vessel runoff. LEFT LOWER EXTREMITY ANGIOGRAPHY: With catheter placed in the left common femoral artery, a 5-Anguillan Contra 2 catheter was placed in the abdominal aorta and reformed into its usual position. The brandon ter was used to selectively engage the left common iliac artery. Images were obtained via hand injec tion. The left common iliac artery bifurcated into the internal iliac artery and external iliac elier ry. The left common iliac artery had an ostial 75% stenosis present. The left internal iliac artery had an ostial 99% stenosis present. The left external iliac artery had a 70% stenosis present. A s tiff angled Glidewire was then advanced into the profunda femoral artery, and the Contra 2 catheter w as exchanged for a straight flush catheter, which was placed in the left common femoral artery. Imag es were obtained via hand injection through the straight flush catheter. The common femoral artery b ifurcated into the superficial femoral artery and profunda femoral artery. The left common femoral a rtery had mild luminal irregularities throughout with no stenosis greater than 15%. The left superfi cial femoral artery was 100% occluded in the ostial segment. Takeoff could not clearly be appreciate d. The left profunda femoral artery collateralized the superficial femoral artery and appeared free of any significant disease. The left superficial femoral artery then turned into the left popliteal artery. The left popliteal artery had mild luminal irregularities throughout. There was no stenosis greater than 10%. Below the knee, there was 2-vessel runoff. STENTING OF LEFT COMMON ILIAC ARTERY AND LEFT EXTERNAL ILIAC ARTERY: A 6-Anguillan introducer sheath wa s placed selectively into the left common femoral artery via modified Seldinger technique. A Magic T orque wire was placed in the distal abdominal aorta and position verified by angiography. An 8.0 x 3 7 mm biliary Express stent was placed in the ostium of the left common iliac artery and deployed. Fo llowup angiography demonstrated no residual stenosis and good flow. A 7.0 x 80 self-expanding stent was then telescoped into the previously placed stent, extended into the left external iliac artery an d deployed. The stent was postdilated with a 7.0 x 100 balloon. Followup angiography demonstrated 2 0% residual stenosis in the left external iliac artery. The left internal iliac artery was patent wi th a 99% stenosis present, was unchanged from previous imaging. COMPLICATIONS: None. CONCLUSIONS: 1. Occluded left superficial femoral artery. 2. A 75% stenosis of the left common iliac artery, status post successful stenting. 3. A 70% stenosis of the left external iliac artery, status post stenting. 4. Consider femoral-popliteal bypass for symptoms that cannot be managed with medical and exercise t herapy. /[id number]/MODL
--- NOTE | 2017-03-06 12:44 | CPIP ---
[f rep st] INVASIVE CARDIAC PROCEDURE DATE OF PROCEDURE: 03/06/2017 PROCEDURES PERFORMED: 1. Abdominal aortography. 2. Right lower extremity angiography with catheter placed in the right common femoral artery. 3. Left lower extremity angiography with catheter placed in the left common femoral artery. 4. Stenting of left common iliac artery with an 8 x 37 biliary Express stent. 5. Stenting of left external iliac artery with a 7 x 80 self-expanding stent. INDICATION: Claudication. ACCESS: Patient was prepped and draped in sterile fashion. 1% lidocaine was used to anesthetize the right inguinal region. A 6-Swazi introducer sheath was placed selectively into the right common fe moral artery via modified Seldinger technique. A 6-Swazi introducer sheath was also placed in the l eft common femoral artery via modified Seldinger technique. ABDOMINAL AORTOGRAPHY: A 6-Swazi pigtail catheter was advanced into the abdominal aorta and positio n verified by angiography. Images were obtained via power injection through the [employer] system. The distal abdominal aorta was diffusely diseased with mild luminal irregularities throughout. In the di stal abdominal aorta prior to the bifurcation of the left and right common iliac arteries, there appe ared to be a 20% to 30% stenosis present. RIGHT LOWER EXTREMITY ANGIOGRAPHY: With catheter placed in the right common femoral artery, images o f the right lower extremity were obtained via hand injection through the 6-Swazi introducer sheath p laced in the right common femoral artery. The right common iliac artery bifurcated into the right ex ternal iliac and internal iliac arteries. A previously placed stent could be seen in the right commo n iliac artery. The previously placed stent was widely patent with no evidence of significant in-arlette nt restenosis. Just distal to the previously placed stent, a 50% stenosis could be appreciated just prior to the takeoff of the right internal iliac artery. The right external iliac artery had mild di ffuse disease throughout. There was no stenosis greater than 20%. The right external iliac artery t urned into the right common femoral artery. The right common femoral artery was diffusely diseased w ith 20% to 30% stenosis present. The right common femoral artery bifurcated into the superficial fem oral artery and the profunda femoral artery. The profunda femoral artery had an ostial 80% stenosis present. The right superficial femoral artery was diffusely diseased. In the proximal vessel, there were segmental 40% to 50% stenoses present. In the midvessel, non-flow limiting dissection could be seen with no evidence of significant stenosis. In the distal section of the vessel, 20% to 30% sten osis could be seen. The popliteal artery was free of any significant disease. Below the knee, there was 2-vessel runoff. LEFT LOWER EXTREMITY ANGIOGRAPHY: With catheter placed in the left common femoral artery, a 5-Swazi Contra 2 catheter was placed in the abdominal aorta and reformed into its usual position. The brandon ter was used to selectively engage the left common iliac artery. Images were obtained via hand injec tion. The left common iliac artery bifurcated into the internal iliac artery and external iliac elier ry. The left common iliac artery had an ostial 75% stenosis present. The left internal iliac artery had an ostial 99% stenosis present. The left external iliac artery had a 70% stenosis present. A s tiff angled Glidewire was then advanced into the profunda femoral artery, and the Contra 2 catheter w as exchanged for a straight flush catheter, which was placed in the left common femoral artery. Imag es were obtained via hand injection through the straight flush catheter. The common femoral artery b ifurcated into the superficial femoral artery and profunda femoral artery. The left common femoral a rtery had mild luminal irregularities throughout with no stenosis greater than 15%. The left superfi cial femoral artery was 100% occluded in the ostial segment. Takeoff could not clearly be appreciate d. The left profunda femoral artery collateralized the superficial femoral artery and appeared free of any significant disease. The left superficial femoral artery then turned into the left popliteal artery. The left popliteal artery had mild luminal irregularities throughout. There was no stenosis greater than 10%. Below the knee, there was 2-vessel runoff. STENTING OF LEFT COMMON ILIAC ARTERY AND LEFT EXTERNAL ILIAC ARTERY: A 6-Swazi introducer sheath wa s placed selectively into the left common femoral artery via modified Seldinger technique. A Magic T orque wire was placed in the distal abdominal aorta and position verified by angiography. An 8.0 x 3 7 mm biliary Express stent was placed in the ostium of the left common iliac artery and deployed. Fo llowup angiography demonstrated no residual stenosis and good flow. A 7.0 x 80 self-expanding stent was then telescoped into the previously placed stent, extended into the left external iliac artery an d deployed. The stent was postdilated with a 7.0 x 100 balloon. Followup angiography demonstrated 2 0% residual stenosis in the left external iliac artery. The left internal iliac artery was patent wi th a 99% stenosis present, was unchanged from previous imaging. COMPLICATIONS: None. CONCLUSIONS: 1. Occluded left superficial femoral artery. 2. A 75% stenosis of the left common iliac artery, status post successful stenting. 3. A 70% stenosis of the left external iliac artery, status post stenting. 4. Consider femoral-popliteal bypass for symptoms that cannot be managed with medical and exercise t herapy. /[id number]/MODL
--- NOTE | 2017-03-06 12:44 | CPIP ---
[f rep st] INVASIVE CARDIAC PROCEDURE DATE OF PROCEDURE: 03/06/2017 PROCEDURES PERFORMED: 1. Abdominal aortography. 2. Right lower extremity angiography with catheter placed in the right common femoral artery. 3. Left lower extremity angiography with catheter placed in the left common femoral artery. 4. Stenting of left common iliac artery with an 8 x 37 biliary Express stent. 5. Stenting of left external iliac artery with a 7 x 80 self-expanding stent. INDICATION: Claudication. ACCESS: Patient was prepped and draped in sterile fashion. 1% lidocaine was used to anesthetize the right inguinal region. A 6-Cymro introducer sheath was placed selectively into the right common fe moral artery via modified Seldinger technique. A 6-Cymro introducer sheath was also placed in the l eft common femoral artery via modified Seldinger technique. ABDOMINAL AORTOGRAPHY: A 6-Cymro pigtail catheter was advanced into the abdominal aorta and positio n verified by angiography. Images were obtained via power injection through the [employer] system. The distal abdominal aorta was diffusely diseased with mild luminal irregularities throughout. In the di stal abdominal aorta prior to the bifurcation of the left and right common iliac arteries, there appe ared to be a 20% to 30% stenosis present. RIGHT LOWER EXTREMITY ANGIOGRAPHY: With catheter placed in the right common femoral artery, images o f the right lower extremity were obtained via hand injection through the 6-Cymro introducer sheath p laced in the right common femoral artery. The right common iliac artery bifurcated into the right ex ternal iliac and internal iliac arteries. A previously placed stent could be seen in the right commo n iliac artery. The previously placed stent was widely patent with no evidence of significant in-arlette nt restenosis. Just distal to the previously placed stent, a 50% stenosis could be appreciated just prior to the takeoff of the right internal iliac artery. The right external iliac artery had mild di ffuse disease throughout. There was no stenosis greater than 20%. The right external iliac artery t urned into the right common femoral artery. The right common femoral artery was diffusely diseased w ith 20% to 30% stenosis present. The right common femoral artery bifurcated into the superficial fem oral artery and the profunda femoral artery. The profunda femoral artery had an ostial 80% stenosis present. The right superficial femoral artery was diffusely diseased. In the proximal vessel, there were segmental 40% to 50% stenoses present. In the midvessel, non-flow limiting dissection could be seen with no evidence of significant stenosis. In the distal section of the vessel, 20% to 30% sten osis could be seen. The popliteal artery was free of any significant disease. Below the knee, there was 2-vessel runoff. LEFT LOWER EXTREMITY ANGIOGRAPHY: With catheter placed in the left common femoral artery, a 5-Cymro Contra 2 catheter was placed in the abdominal aorta and reformed into its usual position. The brandon ter was used to selectively engage the left common iliac artery. Images were obtained via hand injec tion. The left common iliac artery bifurcated into the internal iliac artery and external iliac elier ry. The left common iliac artery had an ostial 75% stenosis present. The left internal iliac artery had an ostial 99% stenosis present. The left external iliac artery had a 70% stenosis present. A s tiff angled Glidewire was then advanced into the profunda femoral artery, and the Contra 2 catheter w as exchanged for a straight flush catheter, which was placed in the left common femoral artery. Imag es were obtained via hand injection through the straight flush catheter. The common femoral artery b ifurcated into the superficial femoral artery and profunda femoral artery. The left common femoral a rtery had mild luminal irregularities throughout with no stenosis greater than 15%. The left superfi cial femoral artery was 100% occluded in the ostial segment. Takeoff could not clearly be appreciate d. The left profunda femoral artery collateralized the superficial femoral artery and appeared free of any significant disease. The left superficial femoral artery then turned into the left popliteal artery. The left popliteal artery had mild luminal irregularities throughout. There was no stenosis greater than 10%. Below the knee, there was 2-vessel runoff. STENTING OF LEFT COMMON ILIAC ARTERY AND LEFT EXTERNAL ILIAC ARTERY: A 6-Cymro introducer sheath wa s placed selectively into the left common femoral artery via modified Seldinger technique. A Magic T orque wire was placed in the distal abdominal aorta and position verified by angiography. An 8.0 x 3 7 mm biliary Express stent was placed in the ostium of the left common iliac artery and deployed. Fo llowup angiography demonstrated no residual stenosis and good flow. A 7.0 x 80 self-expanding stent was then telescoped into the previously placed stent, extended into the left external iliac artery an d deployed. The stent was postdilated with a 7.0 x 100 balloon. Followup angiography demonstrated 2 0% residual stenosis in the left external iliac artery. The left internal iliac artery was patent wi th a 99% stenosis present, was unchanged from previous imaging. COMPLICATIONS: None. CONCLUSIONS: 1. Occluded left superficial femoral artery. 2. A 75% stenosis of the left common iliac artery, status post successful stenting. 3. A 70% stenosis of the left external iliac artery, status post stenting. 4. Consider femoral-popliteal bypass for symptoms that cannot be managed with medical and exercise t herapy. /[id number]/MODL
[2017-03-06] MEDS ORDERED: LISINOPRIL 10 MG TAB PO ONE (14:15)
[2017-03-06] MEDS: CARVEDILOL 6.25 MG TAB PO SCH (17:42)
[2017-03-06] MEDS: OMEGA-3 FATTY ACIDS 1,000 MG CAP PO SCH (20:48)
[2017-03-06] MEDS ORDERED: MONTELUKAST SODIUM 10 MG TAB PO SCH (21:00)
[2017-03-06] MEDS ORDERED: ATORVASTATIN CALCIUM 40 MG TAB PO SCH (21:00)
[2017-03-06] MEDS ORDERED: GLIMEPIRIDE 2 MG TAB PO SCH (21:00)
[2017-03-06] MEDS ORDERED: amLODIPine BESYLATE 5 MG TAB PO SCH (21:00)
[2017-03-07 04:58] LABS: PLATELET COUNT 200 10^3/uL (150-400)
[2017-03-07] MEDS: CARVEDILOL 6.25 MG TAB PO SCH (07:52)
[2017-03-07] MEDS: OMEGA-3 FATTY ACIDS 1,000 MG CAP PO SCH (07:52)
[2017-03-07] MEDS ORDERED: MULTIVITAMINS 1 EACH TAB PO SCH (09:00)
[2017-03-07] MEDS ORDERED: LISINOPRIL/HCTZ 10/12.5 MG 1 EA TAB PO SCH (09:00)
[2017-03-07] MEDS ORDERED: CHOLECALCIFEROL VIT D3 2,000 UNITS TAB/CAP PO SCH (09:00)
[2017-03-07] MEDS ORDERED: CLOPIDOGREL BISULFATE 75 MG TAB PO SCH (09:00)
[2017-03-07] MEDS ORDERED: ASPIRIN EC 325 MG TAB PO SCH (09:00)
[2017-03-07 09:18] VITALS: BP 155/67; PULSE 70; RESP 17; TEMP 97.5; O2SAT 96
--- NOTE | 2017-03-07 10:21 | ASMTCASEMG ---
Living Arrangements What is your living Answers: With Spouse arrangement? Who do you live with? Type Of Residence What kind of residence do Answers: House you live in? Discharge Plan Comments Coordination Status Comments Notes: Pt is a 71 y/o that had a cath procedure. Anticipates that pt will d/c independent w/ supportive . No therapies ordered at this time. CM available for changes. Date Signed: 03/07/2017 10:21 AM Electronically Signed By:ENMANUEL Mckinnon
--- NOTE | 2017-03-07 11:32 | GDS ---
[f rep st] DISCHARGE SUMMARY ADMISSION DIAGNOSES: 1. Claudication. 2. Known peripheral vascular disease. 3. Valvular heart disease with status post aortic valve replacement. 4. Diabetes type 2. 5. Hypertension. 6. Hyperlipidemia. DISCHARGE DIAGNOSES: 1. Peripheral vascular disease. 2. Status post peripheral vascular intervention with implantation of an 8 x 37 biliary Express stent in the common iliac artery and a 7 x 80 self-expanding stent in external iliac artery. 3. Valvular heart disease with remote aortic valve replacement. 4. Type 2 diabetes. 5. Hypertension. 6. Hyperlipidemia. PROCEDURES DONE DURING HOSPITALIZATION: 1. Electrocardiogram. 2. Abdominal aortogram. 3. Right lower extremity angiogram. 4. Left lower extremity angiogram. 5. Percutaneous intervention of the common iliac artery with an 8 x 37 biliary Express stent. 6. Percutaneous intervention of the external iliac artery with a 7 x 80 self-expanding stent. BRIEF HISTORY: Please see H and P. The patient is a 71-year-old male, has known history of peripher al vascular disease. He recently underwent angioplasty of the right superficial femoral artery, he r eported significant improvement in his claudication. He has known peripheral vascular disease into h is left lower extremity; he had been seen by Dr. Moya in office and felt to be an appropriate william date to undergo further percutaneous intervention to his left lower extremity. HOSPITAL COURSE: 1. Patient was admitted to CVC, prepped for procedure and taken to the cardiac catheterization lab, where Dr. Moya performed abdominal aortic angiogram showing the distal abdominal aorta with diffuse disease, with multiple luminal irregularities throughout. In the distal abdominal aorta, prior to t he bifurcation to the left and right common iliac arteries, there appeared to be a 20% to 30% stenosi s. 2. Next, right lower extremity angiogram was done, showing previous placed stent in the right common iliac artery was patent, with no evidence of any significant in-stent stenosis. Just distal to the previous stent, there was a 50% stenosis, the right external iliac artery had mild diffuse disease th roughout with no stenosis greater than 20%. 3. Left lower extremity angiogram was done, where it showed the left common iliac artery at the osti um had a 75% stenosis. The left internal iliac artery has ostial 90% stenosis. Left external iliac artery had a 70% stenosis. At that time, percutaneous in the left superficial femoral artery was 100 % occluded at the ostial segment. At that time, percutaneous intervention was performed, in which an 8.0 x 37 biliary Express stent was placed in the ostium of the left common iliac artery, deployed, a nd a 7.0 x 80 self-expanding stent was deployed into the left external iliac artery. No complication s. The patient was transferred back to the CVC, and ultimately to the PCU. Overnight, he has been p ain-free, he has been up and walking in the unit and reporting no significant claudication, denying a ny chest pain, shortness of breath, palpitations, or lightheadedness. PHYSICAL EXAMINATION: GENERAL APPEARANCE: A medium built, mildly obese, male. He is aler t and oriented to person, place, time, and situation. Appears to be under no acute distress. VITAL SIGNS: Current vital signs are blood pressure of 155/67, heart rate of 70, sinus rhythm on the monit or. Respirations 17, saturating 96% on room air. Temperature 36.4 degrees Celsius. HEENT: Head is normocephalic. Lips and tongue are pink, moist, with no cyanosis, conjunctivae pink. NECK: Trache a is midline. +2 carotid pulses bilateral. No auscultated bruits, no jugular vein distention. RESP IRATORY: Lungs clear to auscultation. No rhonchi, rales or wheezes. No accessory muscle use, no in tercostal muscle retraction noted. CARDIAC: Regular rate, regular rhythm, S1, S2, a 2/6 systolic mu rmur noted in the right upper chest, no gallops, rubs or murmurs noted. ABDOMEN: Soft, nontender, b owel sounds x4 quadrants. No organomegaly. No palpable masses. SKIN: [place], warm, dry, no cyanosis , no clubbing, no peripheral edema. VASCULAR: +2 carotids bilateral, +1 radials bilateral. Doppler post tibial pulses bilateral, capillary refill to lower extremity less than 3 seconds. GROIN SITES: Catheter insertion sites, bilateral groin sites, mild ecchymosis noted on the left groin site with n o redness, swelling, drainage, or hematoma noted. No auscultated bruit over site. Right groin site with no redness, swelling, drainage, ecchymosis, or hematoma. No auscultated bruit. LABORATORY STUDIES: Laboratory studies this morning show WBC of 11.35, hemoglobin 10.3, hematocrit o f 31.4, platelet count 200. Sodium 136, potassium 4.6, chloride 105, CO2 19, BUN 32, creatinine 1.3, glucose 200, calcium 8.1. Yesterday, the patient had a fasting lipid panel done showing triglycerid es of 185, total cholesterol 118, LDL 53, HDL of 28. PROCEDURES: Admission electrocardiogram showing sinus rhythm, normal axis, no significant ST or T-wa ve abnormalities noted suggesting of ischemia. Interventional procedures, as mentioned above. DISCHARGE DISPOSITION: Patient will be discharged home in stable condition. He is under activity re strictions of not lifting more than 10 pounds for the next week and no strenuous activity for the nex t 2 weeks. DISCHARGE MEDICATIONS: Please see discharge medication reconciliation sheet, patient is on dual anti -platelet therapy of full-strength aspirin at 325 mg daily and clopidogrel 75 mg p.o. daily. The ayanna robles has been told not to take his metformin until Friday morning, until at least 48 hours post contr ast injection. Rest of the home medications as unchanged. DISCHARGE INSTRUCTIONS: Post peripheral vascular intervention discharge and groin precautions went o huyen with the patient and his , including monitoring for signs of infection, bleeding precautions, medication compliance, bathing precautions, activity restrictions. At the time of discharge, the nabil alvarado and his verbalized understanding all instructions and have no questions at this time. The y were told that if any problems or concerns come up post discharge, they are to call our office or r eturn to the hospital. The patient has a followup appointment scheduled for March 14, 2017 at our office. Total time spent on discharge greater than 30 minutes. /[id number]/MODL
== END 2017-03-07 11:07 | disposition home or self-care (01) ==
LOC: FCATH 07:09 → F2W 11:58
PROVIDERS: ADMIT Internal Medicine Cardiovascular Disease; ATTEND Internal Medicine Cardiovascular Disease
PROC: 047J3DZ Dilation of Left External Iliac Artery with Intraluminal Device, Percutaneous Approach (ICD-10-PCS; principal; 2017-03-06)
PROC: B41DZZZ Fluoroscopy of Aorta and Bilateral Lower Extremity Arteries (ICD-10-PCS; principal; 2017-03-06)
PROC: 047D34Z Dilation of Left Common Iliac Artery with Drug-eluting Intraluminal Device, Percutaneous Approach (ICD-10-PCS; principal; 2017-03-06)
DX: I73.9 Peripheral vascular disease, unspecified (principal); Z95.2 Presence of prosthetic heart valve; E11.9 Type 2 diabetes mellitus without complications; I10 Essential (primary) hypertension; E78.5 Hyperlipidemia, unspecified
CPT/HCPCS: 37221; 37223; 75716; 93005; C1725; C1769; C1876; J1200; J1644; J2250; J3010; Q9967; J0461; J2930

== ENCOUNTER 2017-08-08 07:05 | Observation (INO) | payer OTHER, BC ==
[2017-08-08] MEDS ORDERED: ASPIRIN EC 325 MG TAB PO ONE (07:08)
[2017-08-08] MEDS ORDERED: FAMOTIDINE 20 MG/NACL 50 ML IV ONE (07:08)
[2017-08-08] MEDS ORDERED: DIAZEPAM 5 MG TAB PO ONE (07:08)
[2017-08-08] MEDS ORDERED: diphenhydrAMINE 25 MG CAP PO ONE (07:08)
[2017-08-08] MEDS ORDERED: methylPREDNISolone SOD SUCC 125 MG/2 ML VIAL IVP ONE (07:08)
[2017-08-08] MEDS ORDERED: FAMOTIDINE 20 MG TAB PO ONE (07:08)
[2017-08-08] MEDS ORDERED: NS 1,000 ML IV ONE (07:08)
--- NOTE | 2017-08-08 07:26 | CPEKG ---
Heart Rate: 54 RR Interval: 1111 P-R Interval: 204 QRSD Interval: 84 QT Interval: 408 QTC Interval: 387 P [place]: -47 QRS [place]: 18 T Wave [place]: 53 EKG Severity - OTHERWISE NORMAL ECG - EKG Impression: SINUS OR ECTOPIC ATRIAL RHYTHM Electronically Signed By: Kristopher Lewis 08-Aug-2017 08:21:46
[2017-08-08 07:44] LABS: PLATELET COUNT 175 10^3/uL (150-400)
[2017-08-08 07:56] LABS: INR 0.99 (0.83-1.16); PROTIME(PATIENT) 13.3 SEC (12.0-15.0)
[2017-08-08] MEDS ORDERED: IOPAMIDOL (ISOVUE-300) 150 ML BTL ONE ×2 (08:21→09:54)
[2017-08-08] MEDS ORDERED: LIDOCAINE 1% 300 MG/30 ML SDV ONE (08:21)
--- NOTE | 2017-08-08 08:46 | PDGENHP ---
History & Physical Chief Complaint: claudication History of Present Illness: Pt is a 72 yo, m with history of aortic stenosis and PVD who presentes with progressive right calf claudication. He denies rest pain as well as poor wound healing. He is s/p previous R SFA DCB angioplasty and atherectomy. Pertinent Past, Social, Family History: No smoking Relevant Physical Exam: RRR, S1, S2. CTA. decreased R DP and PT pulse Cardiorespiratory Assessment: Pt with known PVD s/p R SFA DCB angioplasty and atherectomy presents with progressive claudication that is lifestyle limiting. Plan for angiography +/- intervention.
[2017-08-08] MEDS ORDERED: fentaNYL 100 MCG/2 ML INJ ONE (08:57)
[2017-08-08] MEDS ORDERED: MIDAZOLAM 2 MG/2 ML VIAL ONE (08:57)
[2017-08-08] MEDS ORDERED: HEPARIN 10,000 UNIT/10 ML MDV (1,000 UNIT/ML) ONE (09:36)
[2017-08-08] MEDS ORDERED: NITROGLYCERIN 0.4 MG BTL SL PRN (10:34)
[2017-08-08] MEDS ORDERED: OXYCODONE/APAP 5/325 TAB PO PRN (10:34)
[2017-08-08] MEDS ORDERED: LORazepam 2 MG/ML INJ IVP PRN (10:34)
[2017-08-08] MEDS ORDERED: TEMAZEPAM 15 MG CAP PO PRN (10:34)
[2017-08-08] MEDS ORDERED: ATROPINE SULFATE 1 MG/10 ML SYR IVP PRN (10:34)
[2017-08-08] MEDS ORDERED: ONDANSETRON 4 MG/2 ML VIAL IVP PRN (10:34)
[2017-08-08] MEDS ORDERED: HYDROCODONE/APAP 5/325 TAB PO PRN (10:34)
[2017-08-08] MEDS ORDERED: CLINDAMYCIN 150 MG CAP PO PRN (10:37)
--- NOTE | 2017-08-08 10:59 | CPEKG ---
Heart Rate: 54 RR Interval: 1111 P-R Interval: 208 QRSD Interval: 90 QT Interval: 436 QTC Interval: 414 P [place]: -30 QRS [place]: 17 T Wave [place]: 43 EKG Severity - ABNORMAL ECG - EKG Impression: SINUS RHYTHM EKG Impression: PROBABLE ANTEROSEPTAL INFARCT, OLD Electronically Signed By: Kristopher Lewis 08-Aug-2017 14:14:20
[2017-08-08] MEDS ORDERED: LISINOPRIL/HCTZ 10/12.5 MG 1 EA TAB PO SCH (11:00)
--- NOTE | 2017-08-08 11:42 | CPIP ---
[f rep st] INVASIVE CARDIAC PROCEDURE DATE OF PROCEDURE: 08/08/2017 PROCEDURES PERFORMED: 1. Right lower extremity angiography via contralateral approach with catheter placed in the external iliac artery. 2. Drug coated balloon angioplasty of the right superficial femoral artery. INDICATION: 1. Known peripheral vascular disease. 2. Lifestyle limiting claudication of the right lower extremity. ACCESS: Patient was prepped and draped in sterile fashion. 1% lidocaine was used to anesthetize the left inguinal region. A 6-Samoan introducer sheath was placed selectively in the left common femora l artery via modified Seldinger technique. The 6-Samoan introducer sheath was later exchanged for a [place] Dest[place] sheath via exchange wire technique. The [place] Dest[place] sheath was later e xchanged for a 7-Samoan introducer sheath via exchange wire technique. Right lower extremity angiogr aphy via contralateral approach with catheter placed in the external iliac artery. A 5-Samoan Contra 2 catheter was placed in the abdominal aorta and reformed into its usual position. This was used to engage the right common iliac artery. The right common iliac artery bifurcated into an internal francine ac artery and external iliac artery. The right common iliac artery was previously stented. The prev iously placed stent had mild in-stent restenosis in the proximal segment approaching 20% in severity. The right internal iliac artery had an ostial 70% stenosis present. The right external iliac arter y had sequential 30% stenosis present. An angled Glidewire was then advanced through the Contra 2 ca theter into the superficial femoral artery. The Contra 2 catheter was then exchanged for a straight flush catheter that was placed in the external iliac artery. Images of the right lower extremity wer e then obtained via hand injection through the straight flush catheter. The right external iliac art sharon turned into the right common femoral artery. The right common femoral artery then bifurcated int o the superficial femoral artery and profunda femoral artery. The common femoral artery is free of a ny significant disease. The profunda femoral artery had an ostial 90% stenosis present. The right s uperficial femoral artery was diffusely diseased. In the proximal segments there were sequential 40% to 50% stenosis present. In the mid to distal segment, there is a discrete 90% stenosis present. T his was a calcified lesion. The right superficial femoral artery then turned into the popliteal elier ry. The popliteal artery was free of any significant disease. Below the knee, there was 2-vessel ru noff. Drug coated balloon angioplasty of the right superficial femoral artery. A [place] Destinati on sheath was placed in the right external iliac artery and position verified by angiography. An ang led Glidewire was then placed in the popliteal artery and position verified by angiography. A 5.0 x 60 gm mobile balloon was used to pre-dilate the mid to distal superficial femoral artery stenosis. Fol lowup angiography demonstrated significant residual stenosis. A 5.0 x 60 drug coated balloon angiopl asty was then placed across the lesion and deployed for 3 minutes. Followup angiography demonstrated residual 30% stenosis with no limitation in flow. COMPLICATIONS: None. CONCLUSIONS: 1. 90% mid SFA stenosis. 2. Status post successful DCD of the right mid superficial femoral artery. /[id number]/MODL
[2017-08-08] MEDS: CARVEDILOL 6.25 MG TAB PO SCH (17:54)
[2017-08-08] MEDS: OMEGA-3 FATTY ACIDS 1,000 MG CAP PO SCH (20:49)
[2017-08-08] MEDS: MONTELUKAST SODIUM 10 MG TAB PO SCH ×2 (20:53→21:04)
[2017-08-08] MEDS: amLODIPine BESYLATE 5 MG TAB PO SCH ×2 (20:54→21:04)
[2017-08-08] MEDS ORDERED: ATORVASTATIN CALCIUM 40 MG TAB PO SCH (21:00)
[2017-08-09 04:29] LABS: PLATELET COUNT 185 10^3/uL (150-400)
[2017-08-09 07:12] VITALS: BP 149/65
[2017-08-09] MEDS: ASPIRIN EC 325 MG TAB PO SCH ×2 (08:40→08:44)
[2017-08-09] MEDS: OMEGA-3 FATTY ACIDS 1,000 MG CAP PO SCH (08:41)
[2017-08-09] MEDS: CARVEDILOL 6.25 MG TAB PO SCH (08:41)
[2017-08-09] MEDS ORDERED: LISINOPRIL/HCTZ 10/12.5 MG 1 EA TAB PO SCH (09:00)
[2017-08-09] MEDS ORDERED: CHOLECALCIFEROL VIT D3 2,000 UNITS TAB/CAP PO SCH (09:00)
[2017-08-09] MEDS ORDERED: CLOPIDOGREL BISULFATE 75 MG TAB PO SCH (09:00)
[2017-08-09] MEDS ORDERED: MULTIVITAMINS 1 EACH TAB PO SCH (09:00)
--- NOTE | 2017-08-09 11:16 | GDS ---
[f rep st] DISCHARGE SUMMARY DISCHARGE DIAGNOSIS: 1. Lifestyle limiting claudications secondary to peripheral vascular disease, status post right SFA drug coated balloon angioplasty on 08/08/2017. 2. 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 3. Hypertension. 4. Dyslipidemia. 5. Type 2 diabetes mellitus. 6. Aortic valve disease, status post aortic valve replacement in 2008 and redo in 2011 with a biopro sthetic aortic valve replacement. 7. Erythema in intertriginous areas suggestive of candidiasis. PROCEDURES: 08/08/2017, peripheral intervention with drug coated balloon angioplasty of the right SF A. The other findings are that the right common iliac was previously stented and there is an ostial 70% stenosis present in there. The right external iliac had sequential 30% stenosis present. The ri ght external iliac turned into the right common femoral artery, which then bifurcated into the SFA an d the profunda femoral arteries. The common femoral artery is free of any significant disease. The profunda artery has an ostial 90% stenosis. The right SFA was diffusely diseased with sequential 40% to 50% stenoses in the proximal segment. In the mid to distal segment, there was a discrete 90% arlette nosis which was calcified. This was treated with drug coated balloon angioplasty. BRIEF HISTORY: Please see dictated H and P from our office for complete details. In brief, the vidhya ent is a 72-year-old male with known severe peripheral vascular disease who started to note calf cram ping a few weeks prior to date. He proceeded to ONI which showed very low rest ONI suggestive of res t claudication symptoms. He had a peripheral angiography and was found to have severe right SFA re-s tenosis which was once again treated with drug coated balloon angioplasty. HOSPITAL COURSE: 1. Peripheral vascular disease, status post right SFA drug coated balloon angioplasty. He will need to continue Plavix and aspirin, which he is currently taking. 2. Dyslipidemia. Total cholesterol of 115, triglycerides 229, LDL 45, HDL of 25. He may continue hi s atorvastatin. We discussed low glycemic diet for triglyceride reduction. 3. Mild CKD, likely secondary to dehydration and recent contrast dye. We will plan to recheck his B MP in 1 week. Creatinine on day of discharge was 1.4. 4. Hypertension. His blood pressures are elevated today. We discussed options of titrating medicat ions versus watchful waiting. He will maintain a blood pressure log and bring this to his next appoi ntment and will determine whether he needs medication titration at that point. PHYSICAL EXAMINATION DAY OF DISCHARGE: VITAL SIGNS: Blood pressure 149/65, heart rate 66, respirati ons 16, O2 saturation 91% on room air, temperature of 98.1 degrees Fahrenheit. GENERAL: He is a huyen y pleasant male in no apparent distress. EYES: PERRL. HEART: Regular rate and rhythm. LUNGS: Lungs are clear to auscultation. EXTREMITIES: He has trace to 1+ PT and DP pulses bilaterally. LABORATORY DATA: BMP with sodium 136, potassium 5.3, chloride 105, CO2 21, BUN 38, creatinine 1.4, g lucose 327 in the setting of pretreatment for a shellfish allergy with Solu-Medrol. CBC with WBC 13. 05, hemoglobin 11.6, hematocrit 35.4, platelet count of 185. RESULTS PENDING: None. DIET: Per previous. ACTIVITY: Groin precautions reviewed at length. DISCHARGE MEDICATIONS: Please see medication reconciliation. He is being continued on his Januvia, amlodipine, fish oil, multivitamin, Singulair, lisinopril with hydrochlorothiazide, fluticasone nasal spray, Plavix, clindamycin prior to dental procedures, vitamin D3, carvedilol 12.5 p.o. twice daily, atorvastatin 80 mg h.s., aspirin 325 p.o. daily. His is being given a prescription for nystatin pow zohaib for some erythema in the intertriginous folds. DISCHARGE INSTRUCTIONS: 1. Groin precautions. 2. Follow up with wound check in 1 week's time. 3. Follow up as scheduled in 1 month's time. /[id number]/MODL
--- NOTE | 2017-08-09 17:35 | ASDISCHSUM ---
Discharge Information Plan Status:Home with No Needs Medically Cleared to Leave: Discharge Date:08/09/2017 10:17 AM CM D/C Disposition:Home, Routine, Self-Care ADT D/C Disposition:Home, Routine, Self-Care Projected Discharge Date:08/09/2017 10:17 AM Transportation at D/C:Family Discharge Delay Reason: Follow-Up Date:08/09/2017 10:17 AM Discharge Slot: Final Diagnosis: Placement Information Patient Contact Information Contact Name:KEYSHA Relationship: Address:[address] Home Phone: City:[place] Alternate Phone: [facility]/Zip Code:[place] [address] Email: Financial Information Financial Class:Medicare Primary Plan Desc:MEDICARE OUTPATIENT Primary Plan Number:[id number] Secondary Plan Desc: [facility] Secondary Plan Number:[id number] Assessment Information [facility] CM Progress Note CM Note CM Note Notes: Dc order received. Anticipate dc home independently. CM available if needs/changes. Date Signed: 08/09/2017 05:34 PM Electronically Signed By:Quita Bernabe RN Intervention Information
== END 2017-08-09 10:17 | disposition home or self-care (01) ==
LOC: FCATH 07:05 → F2W 10:35
PROVIDERS: ADMIT Internal Medicine Cardiovascular Disease; ATTEND Internal Medicine Cardiovascular Disease
DX: I70.211 Atherosclerosis of native arteries of extremities with intermittent claudication, right leg (principal); E11.51 Type 2 diabetes mellitus with diabetic peripheral angiopathy without gangrene; I10 Essential (primary) hypertension; I35.1 Nonrheumatic aortic (valve) insufficiency; E78.5 Hyperlipidemia, unspecified; Z95.2 Presence of prosthetic heart valve
CPT/HCPCS: 37226; 75710; 93005; C1725; C1769; C2623; J1200; J1644; J2250; J2930; J3010; Q9967; J0461

== ENCOUNTER → 2017-09-22 | Outpatient (CLI) | payer OTHER, BC | LOC: BHCLAF 16:15 | PROVIDERS: ATTEND Internal Medicine | DX: I65.23 Occlusion and stenosis of bilateral carotid arteries (principal) | CPT/HCPCS: 93880-PO ==

== ENCOUNTER → 2018-03-09 | Outpatient (CLI) | payer OTHER, BC | LOC: SBRMNEURO 21:00 | PROVIDERS: ATTEND Physician Assistant Medical | DX: G47.33 Obstructive sleep apnea (adult) (pediatric) (principal) ==

== ENCOUNTER → 2018-09-01 | Outpatient (CLI) | payer OTHER, BC | DX: I35.9 Nonrheumatic aortic valve disorder, unspecified (principal); I34.0 Nonrheumatic mitral (valve) insufficiency ==

== ENCOUNTER → 2018-09-30 | Outpatient (CLI) | payer OTHER, BC | LOC: BHCLAF 14:00 | PROVIDERS: ATTEND Internal Medicine Cardiovascular Disease | DX: I65.23 Occlusion and stenosis of bilateral carotid arteries (principal) | CPT/HCPCS: 93880-PO ==